=== PATIENT | male | born 1995 | race Caucasian/White ===

== ENCOUNTER 2016-07-19 07:22 | Emergency (ER) | payer OTHER ==
[2016-07-19 07:31] VITALS: BP 135/69
--- NOTE | 2016-07-19 08:42 | RAD ---
Indication: Left knee injury. 4 views of left knee demonstrates no fracture. No other bone or joint abnormality is identified. IMPRESSION: No fracture of the left knee is noted.
--- NOTE | 2016-07-19 08:47 | UC ---
Reginaldo Banda Salem, [facility] on 07/19/16 at 0746 . Knee Pain HPI - HPI Summary HPI Summary: HPI: Patient is a 21 y/o male who presents to the s/p a left knee injury since last night at 0000. He reports slipping on ice and hyper-extending his knee. He states that the back and side of his left knee is now in pain and he cannot extend his knee. 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 note: Left knee injury from slipping on ice 8 hours ago. 5/10 pain. Occasional EtOH. Nonsmoker. Cholecystectomy. Visit hx: noncontributory to current complaint. Nurses note: Left knee pain after a slip and fall last evening. - History of Current Complaint Stated Complaint: KNEE INJURY Hx Obtained From: Patient Onset/Duration: Gradual Onset, Lasting Hours Severity Initially: Moderate Severity Currently: Moderate Aggravating Factor(s): Movement Alleviating Factor(s): Nothing Associated Signs And Symptoms: Positive: Negative - Allergies/Home Medications Allergies/Adverse Reactions: Allergies Allergy/AdvReac Type Severity Reaction Status Date / Time Amoxicillin [From Augmentin] Allergy Unknown Unknown Verified 07/19/16 07:26 Reaction Details Clavulanic Acid Allergy Unknown Unknown Verified 07/19/16 07:26 [From Augmentin] Reaction Details PMH/Surg Hx/FS Hx/Imm Hx Endocrine History Of: Denies: Diabetes, Thyroid Disease, Hyperthyroidism, Hypothyroidism, Dyslipidemia Cardiovascular History Of: Denies: Cardiac Disorders, Hypertension, Pacemaker/ICD, Myocardial Infarction , Congestive Heart Failure, Atrial Fibrillation, Deep Vein Thrombosis, Bleeding Disorders Respiratory History Of: Denies: COPD, Asthma, Bronchitis, Pneumonia, Pulmonary Embolism GI/ History Of: Reports: Gastroesophageal Reflux - He states that he will "wake up in tears" at night sometimes. Milk helps., Gall Bladder Disease - He had his gangrenous gallbladder out when 16 years old. Denies: Ulcer, Gastrointestinal Bleed, Kidney Stones, Diverticulitis, Renal Disease, Urosepsis Neurological History Of: Denies: TIA, CVA, Dementia, Seizures, Migraine Psychological History Of: Reports: Anxiety, Depression, Bipolar Disorder - He states that he has these problems, but he has not seen anyone for care. Denies: Schizophrenia, Post Traumatic Stress Disorder Cancer History Of: Denies: Lung Cancer, Colorectal Cancer, Breast Cancer, Prostate Cancer, Cervical Cancer Other History Of: Negative For: HIV, Hepatitis B, Hepatitis C, Anticoagulant Therapy - Surgical History Surgical History: Yes Surgery Procedure, Year, and Place: cholecystectomy - Family History Known Family History: Positive: Cardiac Disease, Hypertension - Social History Alcohol Use: Occasionally Substance Use Type: Marijuana Smoking Status (MU): Never Smoked Tobacco Type: Smokeless Tobacco Have You Smoked in the Last Year: No Review of Systems Constitutional: Negative Musculoskeletal: Other: - Pain in back and side of left knee. All Other Systems Reviewed And Are Negative: Yes Physical Exam Triage Information Reviewed: Yes Appearance: Well-Appearing, No Pain Distress, Well-Nourished Vital Signs: Initial Vital Signs Temp 97.9 F 07/19/16 07:24 Pulse 80 07/19/16 07:24 Resp 16 07/19/16 07:24 BP 135/69 07/19/16 07:24 Pulse Ox 98 07/19/16 07:24 Vital Signs Reviewed: Yes Eyes: Positive: Conjunctiva Clear ENT: Positive: Hearing grossly normal, Pharynx normal, TMs normal. Negative: Muffled/hoarse voice Neck: Positive: Supple, No Lymphadenopathy, Other: - No spine tenderness. Respiratory: Positive: Chest non-tender, Lungs clear, Normal breath sounds, No respiratory distress Cardiovascular: Positive: RRR, No Murmur Abdomen Description: Positive: Nontender, No Organomegaly, Soft Bowel Sounds: Positive: Present Musculoskeletal: Positive: Other: - LEFT KNEE TENDER POSTERIORLY AND ALONG THE HAMSTRING TENDON. Neurological: Positive: Alert Psychological: Positive: Age Appropriate Behavior Diagnostics - Radiology KNEE XRAY Radiology Interpretation Completed By: ED Physician - No fracture., Radiologist - IMPRESSION: No fracture of the left knee is noted. Knee Pain Course/Dx - Course Course Of Treatment: Differential diagnosis: Soft tissue injury vs fracture. - Differential Dx/Diagnosis Differential Diagnosis/HQI/PQRI: Fracture (Closed), Sprain, Strain Provider Diagnoses: 1. Left knee sprain. 2. Note: Systolic blood pressure noted at 135 bpm. Pt does not have a hx of HTN. HTN possibly secondary to pain. Discussed with pt. He will recheck his blood pressure over the next four weeks. Discharge - Discharge Plan Condition: Stable Disposition: HOME Patient Education Materials: Knee Sprain (ED) Forms: *Work Release Referrals: Dale Mtz MD [Primary Care Provider] - Additional Instructions: WE DISCUSSED: YOU HAVE SPRAINED YOUR LEFT KNEE, MOSTLY IN THE AREA BEHIND THE KNEE. 1. REST KNEE FRO 2-4 DAYS. 2. IBUPROFEN OR ACETAMINOPHEN. 3. WARM, MOIST HEAT IN THE MORNING TO LOOSEN UP MUSCLES. 4. ICE AFTER STANDING OR USE; ELEVATE; USE SEBASTIEN WRAP. 5. RE CHECK AT ANY TIME FOR INCREASED PAIN OR DISABILITY. 6. WE WILL CALL YOU WITH THE OFFICIAL X RAY READING IF ANY PROBLEMS ARE SEEN AT THAT TIME. 7. RESTRICT USE UNTIL YOU ARE PAIN FREE FOR A DAY. "IF IT HURTS, DON'T DO IT. " 8. IF YOU HAVE CONTINUED PAIN IN 4 WEEKS, RE CHECK WITH AN ORTHOPEDIST. The documentation as recorded by the Reginaldo gallgeos Salem accurately reflects the service I personally performed and the decisions made by me, Bay Arroyo MD.
== END 2016-07-19 08:25 | disposition home or self-care (01) ==
LOC: UCEAST 07:22
DX: S83.92XA Sprain of unspecified site of left knee, initial encounter (principal); W00.0XXA Fall on same level due to ice and snow, initial encounter; Y92.9 Unspecified place or not applicable; Z88.0 Allergy status to penicillin
CPT/HCPCS: 99212; G0463

== ENCOUNTER 2017-06-23 15:52 | Inpatient (IN) | payer MEDICAID ==
[2017-06-23 16:41] LABS: Urine Appearance Clear; Urine Blood Negative (Negative); Urine Color Yellow; Urine Ketones Negative (Negative); Urine Protein Negative (Negative); Urine Specific Gravity 1.029 (1.010-1.030); Urine Urobilinogen Negative (Negative)
[2017-06-23 16:51] LABS: ABS Basophils 0.1 10^3/ul (0-0.2); ABS Eosinophils 0.1 10^3/ul (0-0.6); ABS Lymphocytes 2.3 10^3/ul (1.0-4.8); ABS Monocytes 0.8 10^3/ul (0-0.8); ABS Neutrophils 6.2 10^3/ul (1.5-7.7); ABS Nucleated RBC 0 10^3/ul; Eosinophil % 0.9 % (0-6); Hematocrit 45 % (42-52); Hemoglobin 15.9 g/dl (14.0-18.0); Lymphocyte % 24.5 % (25-47); Mean Corpuscular HGB Conc 35 g/dl (31-36); Mean Corpuscular Hemoglobin 31 pg (27-31); Mean Corpuscular Volume 89 fL (80-94); Mean Platelet Volume 9 um3 (7.4-10.4); Nucleated Red Blood Cells % 0; Platelet Count 277 10^3/ul (150-450); Red Blood Count 5.09 10^6/ul (4.0-5.4); Red Cell Distribution Width 13 % (10.5-15); White Blood Count 9.6 10^3/ul (3.5-10.8)
[2017-06-23] MEDS ORDERED: cefTRIAXone VIAL(*) 1,000 MG VIAL IM ONE (17:06)
[2017-06-23] MEDS ORDERED: Azithromycin TAB* 250 MG PO ONE (17:06)
[2017-06-23] MEDS ORDERED: ALPRAZolam TAB* 0.5 MG PO ONE (17:08)
[2017-06-23] MEDS ORDERED: Lidocaine 1%* 5 ML VIAL ONE (17:09)
[2017-06-23] MEDS ORDERED: Lidocaine 1% INJ* 10 MG/ML 30 ML SDV INJ ONE (17:10)
[2017-06-24] MEDS ORDERED: Al Hydrox/Mg Hydrox/Simet LIQ* 30 ML UDC PO PRN (01:14)
[2017-06-24] MEDS: Vitamin THERAPEUTIC TAB PO SCH (10:00)
[2017-06-24] MEDS ORDERED: Nicotine Inhaler* 10 MG AMP INH PRN (11:00)
[2017-06-24] MEDS ORDERED: Nicotine GUM* 2 MG PO PRN (11:00)
[2017-06-24] MEDS ORDERED: Mouth Piece, Nicotine* 1 EACH CARTRIDGE INH PRN (11:00)
[2017-06-24] MEDS ORDERED: Omeprazole CAP* 20 MG ONE (11:12)
[2017-06-24] MEDS: Omeprazole CAP* 20 MG PO SCH (11:17)
[2017-06-24] MEDS ORDERED: hydrOXYzine HCL TAB* 50 MG PO PRN (11:48)
[2017-06-24] MEDS: OXcarbazepine TAB(*) 300 MG PO SCH ×2 (13:15→22:01)
[2017-06-24] MEDS: FLUoxetine CAP* 20 MG PO SCH (13:15)
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
[2017-06-24] MEDS: Nicotine Patch Removal NOTE PATCH OFF SCH (22:05)
[2017-06-25] MEDS: OXcarbazepine TAB(*) 300 MG PO SCH ×2 (07:36→20:44)
[2017-06-25] MEDS: Omeprazole CAP* 20 MG PO SCH (07:36)
[2017-06-25] MEDS: Vitamin THERAPEUTIC TAB PO SCH (07:37)
[2017-06-25] MEDS: FLUoxetine CAP* 20 MG PO SCH (07:37)
[2017-06-25] MEDS: Nicotine PATCH 21 MG/24 HR* PATCH TRANSDERM SCH (07:39)
--- NOTE | 2017-06-25 11:22 | PN ---
<Trena Chang - Last Filed: 06/25/17 11:53> Subjective - Subjective Service Type: 14776 Hosp care 25 min moderate complexity Subjective: Frankie is tearful as he talks about the father he would like to be to his children. Reports this is the first time he has asked for help in dealing with his anger and sadness. Has some insight regarding his need to learn coping skills. He reports urges to self harm, wanting to bang his head against the wall until he doesn't think the thoughts he has. Option of inpatient treatment for substance use presented. Discussed going to AA meetings on unit and he is considering this. Objective - Appearance Appearance: Obese Dysmorphic Features: No Hygiene: Normal Grooming: Well Kept - Behavior Psychomotor Activities: Normal Exhibits Abnormal Movement: No - Attitude and Relatedness Attitude and Relatedness: Well Related Eye Contact: Good - Speech Quality: Unpressured Latencies: Normal Quantity: Appropriate - Mood Patient's Decription of Mood: and frustrated. - Affect Observed Affect: Tearful Affect Consistent with: Dysphoria - Thought Process Patient's Thought Process: Coherent, Goal Directed Thought Content: No Passive Wish, No Suicidal Planning, No Homicidal Ideation, No Paranoid Ideation - Sensorium Experiencing Hallucinations: No, Sensorium is Clear Type of Hallucinations: Visual: No, Auditory: No, Command: No - Level of Consciousness Orientation: Yes Intact, Yes Orientated to Time, Yes Orientated to Place, Yes Orientated to Person - Impulse Control Impulse Control: Tenuous - Insight and Judgement Insight and Judgement: Poor - Group Participation Particating in Group Activities: Yes - Medication Management Medication Management Adherence: Yes Assessment - Assessment Merits Inpatient Hospitalization: For Immediate Safety, For Stabilization, For Discharge Planning Clinical Impression: First psychiatric inpatient admission for this 22 year old male who presented to the ED with complaints of suicidal ideation and engaging in excessive substance use. History of chaotic upbringing and questionable oppositional defiant disorder. Homicidal threats made during his evaluation process, staff performed duty to warn, police are to be notified when the patient has been discharged. Requires continued hospitalization for immediate safety, stabilization and medication. Plan - Plan Treatment Plan: Name: FRANKIE VILLEGAS Birthdate: 1995 [id number] Continued Medication Management: Start Medication Medications: Current Medications Acetaminophen (Tylenol Tab*) 650 mg PO Q4H PRN PRN Reason: PAIN or TEMP > 101 F Al Hydrox/Mg Hydrox/Simethicone (Maalox Plus*) 30 ml PO Q4H PRN PRN Reason: INDIGESTION Device (Nicotine Mouth Piece*) 1 each INH .USE WITH NICOTROL PRN PRN Reason: CRAVING Fluoxetine HCl (Prozac Cap*) 20 mg PO DAILY [facility] Last Admin: 06/25/17 07:37 Dose: 20 mg Hydroxyzine HCl (Atarax Tab*) 50 mg PO Q4H PRN PRN Reason: ANXIETY Multivitamins (Theragran Tab*) 1 tab PO DAILY [facility] Last Admin: 06/25/17 07:37 Dose: 1 tab Nicotine (Nicotine Inhaler*) 10 mg INH Q2H PRN PRN Reason: CRAVING Nicotine (Nicotine Patch 21 Mg/24 Hr*) 1 patch TRANSDERM DAILY@0800 [facility] Last Admin: 06/25/17 07:39 Dose: Not Given Nicotine Polacrilex (Nicotine Gum*) 2 mg PO Q2H PRN PRN Reason: CRAVING Omeprazole (Prilosec Cap*) 40 mg PO DAILY [facility] Last Admin: 06/25/17 07:36 Dose: 40 mg Oxcarbazepine (Trileptal Tab(*)) 600 mg PO BID [facility] Last Admin: 06/25/17 07:36 Dose: 600 mg Pharmacy Profile Note (Nicotine Patch Removal Note*) 1 note PATCH OFF 2100 [facility] Last Admin: 06/24/17 22:05 Dose: Not Given <Roro Tracey - Last Filed: 06/25/17 14:48> Subjective - Subjective Service Type: 64412 Hosp care 25 min moderate complexity Subjective: above note reviewed and discussed with student. nessa Plan - Plan Treatment Plan: Name: FRANKIE VILLEGAS Birthdate: 1995 [id number] continue acute intensive psychiatric treatment. continue current medications. decrease to q30min observation and allow staff pass. Medications: Current Medications Acetaminophen (Tylenol Tab*) 650 mg PO Q4H PRN PRN Reason: PAIN or TEMP > 101 F Al Hydrox/Mg Hydrox/Simethicone (Maalox Plus*) 30 ml PO Q4H PRN PRN Reason: INDIGESTION Device (Nicotine Mouth Piece*) 1 each INH .USE WITH NICOTROL PRN PRN Reason: CRAVING Fluoxetine HCl (Prozac Cap*) 20 mg PO DAILY [facility] Last Admin: 06/25/17 07:37 Dose: 20 mg Hydroxyzine HCl (Atarax Tab*) 50 mg PO Q4H PRN PRN Reason: ANXIETY Multivitamins (Theragran Tab*) 1 tab PO DAILY [facility] Last Admin: 06/25/17 07:37 Dose: 1 tab Nicotine (Nicotine Inhaler*) 10 mg INH Q2H PRN PRN Reason: CRAVING Nicotine (Nicotine Patch 21 Mg/24 Hr*) 1 patch TRANSDERM DAILY@0800 [facility] Last Admin: 06/25/17 07:39 Dose: Not Given Nicotine Polacrilex (Nicotine Gum*) 2 mg PO Q2H PRN PRN Reason: CRAVING Omeprazole (Prilosec Cap*) 40 mg PO DAILY [facility] Last Admin: 06/25/17 07:36 Dose: 40 mg Oxcarbazepine (Trileptal Tab(*)) 600 mg PO BID [facility] Last Admin: 06/25/17 07:36 Dose: 600 mg Pharmacy Profile Note (Nicotine Patch Removal Note*) 1 note PATCH OFF 2100 [facility] Last Admin: 06/24/17 22:05 Dose: Not Given - Discharge Plan Discharge Plan: Drug/Alcohol Rehab Outpatient Program: [facility]
--- NOTE | 2017-06-25 14:04 | PN ---
MHU: Group Therapy Note - Service Type Service Type: [id number] Group Psychotherapy - Cognitive Behavioral Group Therapy ( CBT):Patient was attentive and participatory in CBT programming this morning, and remained in good behavioral control. Patient expressed positive insights regarding relevant treatment interventions and goals.
--- NOTE | 2017-06-25 16:23 | PN ---
MHU: Group Therapy Note - Service Type Service Type: [id number] Group Psychotherapy - Medication Education Group: Patient was initially interactive and quickly became irritable. He left within minutes of beginning of group.
[2017-06-25] MEDS: Nicotine Patch Removal NOTE PATCH OFF SCH (20:44)
[2017-06-26] MEDS: OXcarbazepine TAB(*) 300 MG PO SCH ×2 (07:39→21:14)
[2017-06-26] MEDS: Vitamin THERAPEUTIC TAB PO SCH (07:40)
[2017-06-26] MEDS: FLUoxetine CAP* 20 MG PO SCH (07:40)
[2017-06-26] MEDS: Nicotine PATCH 21 MG/24 HR* PATCH TRANSDERM SCH (07:41)
[2017-06-26] MEDS: Omeprazole CAP* 20 MG PO SCH (07:41)
--- NOTE | 2017-06-26 15:05 | PN ---
Subjective - Subjective Service Type: 84160 Hosp care 15 min low complexity Subjective: Patient has been attending unit programming, interactive with staff and peers. He is irritable at times, expresses urges to self harm via head banging. He has remained safe on the unit. Patient endorses passive wish, hopelessness and worthlessness. He is receptive to feedback and psychoeducation about mental health and substance use disorders. Objective - Appearance Appearance: Obese Dysmorphic Features: Yes Hygiene: Normal Grooming: Fairly Well Kept - Behavior Psychomotor Activities: Normal Exhibits Abnormal Movement: No - Attitude and Relatedness Attitude and Relatedness: Irritable Eye Contact: Fair - Speech Quality: Unpressured Latencies: Normal Quantity: Appropriate - Mood Patient's Decription of Mood: "Irritable" - Affect Observed Affect: Expansive Affect Consistent with: Dysphoria - Thought Process Patient's Thought Process: Circumstantial Thought Content: Yes Passive Wish, No Suicidal Planning, No Homicidal Ideation, No Paranoid Ideation Assessment - Assessment Merits Inpatient Hospitalization: For Immediate Safety, For Stabilization, To Initiate Treatment, Consolidate Improvements Inpatient DSM-V Dx: F39 Clinical Impression: 22yo white male who presented to ED with reports of increased depressed mood, agitation and substance use. Patient responding well to therapeutic milieu and support. He is agreeable to referrals for substance use treatment. Plan - Plan Treatment Plan: Name: FRANKIE VILLEGAS Birthdate: 1995 [id number] continue acute intensive psychiatric treatment. continue current medications. increase to q15min observation and hold staff pass due to urges to self-injure. Continued Medication Management: Start Medication Medications: Current Medications Acetaminophen (Tylenol Tab*) 650 mg PO Q4H PRN PRN Reason: PAIN or TEMP > 101 F Al Hydrox/Mg Hydrox/Simethicone (Maalox Plus*) 30 ml PO Q4H PRN PRN Reason: INDIGESTION Device (Nicotine Mouth Piece*) 1 each INH .USE WITH NICOTROL PRN PRN Reason: CRAVING Fluoxetine HCl (Prozac Cap*) 20 mg PO DAILY [facility] Last Admin: 06/26/17 07:40 Dose: 20 mg Hydroxyzine HCl (Atarax Tab*) 50 mg PO Q4H PRN PRN Reason: ANXIETY Multivitamins (Theragran Tab*) 1 tab PO DAILY [facility] Last Admin: 06/26/17 07:40 Dose: 1 tab Nicotine (Nicotine Inhaler*) 10 mg INH Q2H PRN PRN Reason: CRAVING Nicotine (Nicotine Patch 21 Mg/24 Hr*) 1 patch TRANSDERM DAILY@0800 [facility] Last Admin: 06/26/17 07:41 Dose: Not Given Nicotine Polacrilex (Nicotine Gum*) 2 mg PO Q2H PRN PRN Reason: CRAVING Omeprazole (Prilosec Cap*) 40 mg PO DAILY [facility] Last Admin: 06/26/17 07:41 Dose: 40 mg Oxcarbazepine (Trileptal Tab(*)) 600 mg PO BID [facility] Last Admin: 06/26/17 07:39 Dose: 600 mg Pharmacy Profile Note (Nicotine Patch Removal Note*) 1 note PATCH OFF 2100 [facility] Last Admin: 06/25/17 20:44 Dose: Not Given - Discharge Plan Discharge Plan: Drug/Alcohol Rehab
[2017-06-26] MEDS: Acetaminophen TAB* 325 MG PO PRN (16:08)
[2017-06-26] MEDS: Nicotine Patch Removal NOTE PATCH OFF SCH (21:19)
[2017-06-27] MEDS: Omeprazole CAP* 20 MG PO SCH (08:16)
[2017-06-27] MEDS: OXcarbazepine TAB(*) 300 MG PO SCH ×2 (08:16→20:48)
[2017-06-27] MEDS: Vitamin THERAPEUTIC TAB PO SCH (08:17)
[2017-06-27] MEDS: FLUoxetine CAP* 20 MG PO SCH (08:17)
[2017-06-27] MEDS: Nicotine PATCH 21 MG/24 HR* PATCH TRANSDERM SCH (09:39)
--- NOTE | 2017-06-27 14:24 | PN ---
Subjective - Subjective Date of Service: 06/27/17 Service Type: 39932 Hosp care 15 min low complexity Subjective: Frankie is not feeling well today. He has been thinking about hurting people and feels enraged inside. Called his ex and couldn't get hold of her. Still wants to kill his ex's current boyfriend. Taking meds and attending groups. Objective - Appearance Appearance: Obese Dysmorphic Features: No Hygiene: Normal Grooming: Fairly Well Kept - Behavior Psychomotor Activities: Normal Exhibits Abnormal Movement: No - Attitude and Relatedness Attitude and Relatedness: Irritable Eye Contact: Poor - Speech Quality: Unpressured Latencies: Normal Quantity: Appropriate - Mood Patient's Decription of Mood: "Angry" - Affect Observed Affect: Tense Affect Consistent with: Dysphoria - Thought Process Patient's Thought Process: Coherent, Goal Directed Thought Content: Yes Passive Wish, Yes Homicidal Ideation, No Suicidal Planning, No Paranoid Ideation - Sensorium Experiencing Hallucinations: No, Sensorium is Clear Type of Hallucinations: Visual: No, Auditory: No, Command: No - Level of Consciousness Level of Consciousness: Alert Orientation: Yes Intact, Yes Orientated to Time, Yes Orientated to Place, Yes Orientated to Person - Impulse Control Impulse Control: Tenuous - Insight and Judgement Insight and Judgement: Impaired - Group Participation Particating in Group Activities: Yes - Medication Management Medication Management Adherence: Yes Assessment - Assessment Merits Inpatient Hospitalization: For Stabilization, Pending Safe DC Plan Inpatient DSM-V Dx: F39 Clinical Impression: Still a risk for harm to self and others. Need inpatient care and notification to the potential victim. Plan - Plan Treatment Plan: Name: FRANKIE VILLEGAS Birthdate: 1995 [id number] Continued Medication Management: Continue Outpt Medication Medications: Current Medications Acetaminophen (Tylenol Tab*) 650 mg PO Q4H PRN PRN Reason: PAIN or TEMP > 101 F Last Admin: 06/26/17 16:08 Dose: 650 mg Al Hydrox/Mg Hydrox/Simethicone (Maalox Plus*) 30 ml PO Q4H PRN PRN Reason: INDIGESTION Device (Nicotine Mouth Piece*) 1 each INH .USE WITH NICOTROL PRN PRN Reason: CRAVING Fluoxetine HCl (Prozac Cap*) 20 mg PO DAILY [facility] Last Admin: 06/27/17 08:17 Dose: 20 mg Hydroxyzine HCl (Atarax Tab*) 50 mg PO Q4H PRN PRN Reason: ANXIETY Multivitamins (Theragran Tab*) 1 tab PO DAILY [facility] Last Admin: 06/27/17 08:17 Dose: 1 tab Nicotine (Nicotine Inhaler*) 10 mg INH Q2H PRN PRN Reason: CRAVING Nicotine (Nicotine Patch 21 Mg/24 Hr*) 1 patch TRANSDERM DAILY@0800 [facility] Last Admin: 06/27/17 09:39 Dose: Not Given Nicotine Polacrilex (Nicotine Gum*) 2 mg PO Q2H PRN PRN Reason: CRAVING Omeprazole (Prilosec Cap*) 40 mg PO DAILY [facility] Last Admin: 06/27/17 08:16 Dose: 40 mg Oxcarbazepine (Trileptal Tab(*)) 600 mg PO BID [facility] Last Admin: 06/27/17 08:16 Dose: 600 mg Pharmacy Profile Note (Nicotine Patch Removal Note*) 1 note PATCH OFF 2100 [facility] Last Admin: 06/26/17 21:19 Dose: Not Given - Discharge Plan Discharge Plan: Outpatient Follow Up Outpatient Program: [facility]
[2017-06-27] MEDS: Nicotine Patch Removal NOTE PATCH OFF SCH (20:49)
[2017-06-28] MEDS: Omeprazole CAP* 20 MG PO SCH (08:25)
[2017-06-28] MEDS: FLUoxetine CAP* 20 MG PO SCH (08:25)
[2017-06-28] MEDS: Vitamin THERAPEUTIC TAB PO SCH (08:26)
[2017-06-28] MEDS: OXcarbazepine TAB(*) 300 MG PO SCH ×2 (08:26→20:17)
[2017-06-28] MEDS: Nicotine PATCH 21 MG/24 HR* PATCH TRANSDERM SCH (08:30)
[2017-06-28] MEDS: Nicotine Patch Removal NOTE PATCH OFF SCH (20:19)
[2017-06-29] MEDS: Acetaminophen TAB* 325 MG PO PRN ×2 (00:38→21:03)
[2017-06-29] MEDS: Omeprazole CAP* 20 MG PO SCH (07:50)
[2017-06-29] MEDS: OXcarbazepine TAB(*) 300 MG PO SCH ×2 (07:50→21:03)
[2017-06-29] MEDS: Vitamin THERAPEUTIC TAB PO SCH (07:50)
[2017-06-29] MEDS: FLUoxetine CAP* 20 MG PO SCH (07:50)
[2017-06-29] MEDS: Nicotine PATCH 21 MG/24 HR* PATCH TRANSDERM SCH (08:15)
[2017-06-29] MEDS ORDERED: Hemorrhoidal OINT PR PRN (15:21)
[2017-06-29] MEDS ORDERED: Loperamide CAP* 2 MG PO PRN (15:21)
--- NOTE | 2017-06-29 15:26 | PN ---
Subjective - Subjective Service Type: 00566 Hosp care 15 min low complexity Subjective: Patient is easily agitated and annoyed by peers. He states he is "miserable" and hoping to go to inpatient treatment soon. He reports frustration at not being allowed to use comfort room or staff pass. He is receptive to provider suggestions regarding distress tolerance and anger management. He states he slept most of the weekend and used sleep to avoid emotions and interactions. He states he had severe urges to want to get drunk and high this past weekend. He states he tries to distract himself with word searches. Reports loose stools, up to 6x day. He denies abd cramping or constipation. He reports bright blood on toilet paper after BMs, likely due to hemorrhoids. Objective - Appearance Appearance: Obese Dysmorphic Features: Yes Hygiene: Normal Grooming: Fairly Well Kept - Behavior Psychomotor Activities: Normal Exhibits Abnormal Movement: No - Attitude and Relatedness Attitude and Relatedness: Irritable Eye Contact: Fair - Speech Quality: Unpressured Latencies: Normal Quantity: Appropriate - Mood Patient's Decription of Mood: "miserable" - Affect Observed Affect: Depressed Affect Consistent with: Dysphoria - Thought Process Patient's Thought Process: Circumstantial Thought Content: Yes Passive Wish, Yes Homicidal Ideation, No Suicidal Planning, No Paranoid Ideation - Sensorium Experiencing Hallucinations: No, Sensorium is Clear Type of Hallucinations: Visual: No, Auditory: No, Command: No - Level of Consciousness Level of Consciousness: Alert Orientation: Yes Intact, Yes Orientated to Time, Yes Orientated to Place, Yes Orientated to Person - Impulse Control Impulse Control: Poor - Insight and Judgement Insight and Judgement: Poor - Group Participation Particating in Group Activities: No - Medication Management Medication Management Adherence: Yes Assessment - Assessment Merits Inpatient Hospitalization: For Immediate Safety, For Stabilization, To Initiate Treatment, Consolidate Improvements Inpatient DSM-V Dx: F39 Clinical Impression: 22yo white male who presented to ED with reports of increased depressed mood, agitation and substance use. Patient responding well to therapeutic milieu and support. He is agreeable to referrals for substance use treatment. Plan - Plan Treatment Plan: Name: FRANKIE VILLEGAS Birthdate: 1995 [id number] continue acute intensive psychiatric treatment. increase fluoxetine in am. add immodium and hemorrhoid cream for GI distress. decrease to q30min observation and allow staff pass. Continued Medication Management: Start Medication Medications: Current Medications Acetaminophen (Tylenol Tab*) 650 mg PO Q4H PRN PRN Reason: PAIN or TEMP > 101 F Last Admin: 06/29/17 00:38 Dose: 650 mg Al Hydrox/Mg Hydrox/Simethicone (Maalox Plus*) 30 ml PO Q4H PRN PRN Reason: INDIGESTION Device (Nicotine Mouth Piece*) 1 each INH .USE WITH NICOTROL PRN PRN Reason: CRAVING Fluoxetine HCl (Prozac Cap*) 20 mg PO DAILY [facility] Last Admin: 06/29/17 07:50 Dose: 20 mg Hydroxyzine HCl (Atarax Tab*) 50 mg PO Q4H PRN PRN Reason: ANXIETY Multivitamins (Theragran Tab*) 1 tab PO DAILY [facility] Last Admin: 06/29/17 07:50 Dose: 1 tab Nicotine (Nicotine Inhaler*) 10 mg INH Q2H PRN PRN Reason: CRAVING Nicotine (Nicotine Patch 21 Mg/24 Hr*) 1 patch TRANSDERM DAILY@0800 [facility] Last Admin: 06/29/17 08:15 Dose: Not Given Nicotine Polacrilex (Nicotine Gum*) 2 mg PO Q2H PRN PRN Reason: CRAVING Omeprazole (Prilosec Cap*) 40 mg PO 0730 [facility] Last Admin: 06/29/17 07:50 Dose: 40 mg Oxcarbazepine (Trileptal Tab(*)) 600 mg PO BID [facility] Last Admin: 06/29/17 07:50 Dose: 600 mg Pharmacy Profile Note (Nicotine Patch Removal Note*) 1 note PATCH OFF 2100 [facility] Last Admin: 06/28/17 20:19 Dose: Not Given - Discharge Plan Discharge Plan: Drug/Alcohol Rehab
[2017-06-30] MEDS: Vitamin THERAPEUTIC TAB PO SCH (09:02)
[2017-06-30] MEDS: FLUoxetine CAP* 20 MG PO SCH (09:03)
[2017-06-30] MEDS: Omeprazole CAP* 20 MG PO SCH (09:03)
[2017-06-30] MEDS: OXcarbazepine TAB(*) 300 MG PO SCH ×2 (09:04→20:44)
[2017-06-30] MEDS: Nicotine PATCH 21 MG/24 HR* PATCH TRANSDERM SCH (09:07)
[2017-06-30] MEDS: Nicotine Patch Removal NOTE PATCH OFF SCH ×2 (09:30→20:45)
[2017-06-30] MEDS: Gabapentin CAP(*) 100 MG PO PRN (13:53)
[2017-06-30] MEDS: Naltrexone TAB* 50 MG TAB PO SCH (13:53)
[2017-06-30] MEDS: Acetaminophen TAB* 325 MG PO PRN ×2 (13:54→23:17)
--- NOTE | 2017-06-30 14:20 | PN ---
Subjective - Subjective Service Type: 62606 Hosp care 25 min moderate complexity Subjective: Patient reports little effect from trileptal and that he is "angry a lot." He states he is frustrated with waiting for inpatient referrals. He reports thoughts of wanting to "go out and get drunk." He endorses restless sleep and vivid, violent nightmares. Patient reports talking with staff and utilizing comfort room was helpful when upset this morning. He is receptive to suggestion of utilizing prn medications as well. We discuss use of medications for alcohol use d/o and he is agreeable to naltrexone and gabapentin. patient is notified of negative STI results. Objective - Appearance Appearance: Obese Dysmorphic Features: No Hygiene: Normal Grooming: Fairly Well Kept - Behavior Psychomotor Activities: Normal Exhibits Abnormal Movement: No - Attitude and Relatedness Attitude and Relatedness: Cooperative Eye Contact: Good - Speech Quality: Unpressured Latencies: Normal Quantity: Appropriate - Mood Patient's Decription of Mood: "Upset" - Affect Observed Affect: Expansive Affect Consistent with: Dysphoria - Thought Process Patient's Thought Process: Circumstantial Thought Content: No Passive Wish, No Suicidal Planning, No Homicidal Ideation, No Paranoid Ideation - Sensorium Experiencing Hallucinations: No, Sensorium is Clear Type of Hallucinations: Visual: No, Auditory: No, Command: No - Level of Consciousness Level of Consciousness: Alert Orientation: Yes Intact, Yes Orientated to Time, Yes Orientated to Place, Yes Orientated to Person - Impulse Control Impulse Control: Poor - Insight and Judgement Insight and Judgement: Poor - Group Participation Particating in Group Activities: Yes - Medication Management Medication Management Adherence: Yes Assessment - Assessment Merits Inpatient Hospitalization: For Immediate Safety, For Stabilization, Consolidate Improvements Inpatient DSM-V Dx: F39 Clinical Impression: 22yo white male who presented to ED with reports of increased depressed mood, agitation and substance use. Patient responding well to therapeutic milieu and support. He is agreeable to referrals for substance use treatment. Plan - Plan Treatment Plan: Name: FRANKIE VILLEGAS Birthdate: 1995 [id number] continue acute intensive psychiatric treatment. add naltrexone and gabapentin for alcohol use d/o. continue q30min observation and allow staff pass. awaiting MMPI completion. Continued Medication Management: Start Medication Medications: Current Medications Acetaminophen (Tylenol Tab*) 650 mg PO Q4H PRN PRN Reason: PAIN or TEMP > 101 F Last Admin: 06/30/17 13:54 Dose: 650 mg Al Hydrox/Mg Hydrox/Simethicone (Maalox Plus*) 30 ml PO Q4H PRN PRN Reason: INDIGESTION Device (Nicotine Mouth Piece*) 1 each INH .USE WITH NICOTROL PRN PRN Reason: CRAVING Fluoxetine HCl (Prozac Cap*) 40 mg PO DAILY [facility] Last Admin: 06/30/17 09:03 Dose: 40 mg Gabapentin (Neurontin Cap(*)) 300 mg PO BEDTIME [facility] Gabapentin (Neurontin Cap(*)) 100 mg PO BID PRN PRN Reason: AGITATION/ANXIETY Last Admin: 06/30/17 13:53 Dose: 100 mg Loperamide HCl (Imodium Cap*) 2 mg PO .SEE DIRECTIONS PRN PRN Reason: DIARRHEA Last Admin: 06/29/17 15:52 Dose: 2 mg Multivitamins (Theragran Tab*) 1 tab PO DAILY [facility] Last Admin: 06/30/17 09:02 Dose: 1 tab Naltrexone HCl (Naltrexone Tab*) 50 mg PO DAILY [facility] PRN Reason: Protocol Last Admin: 06/30/17 13:53 Dose: 50 mg Nicotine (Nicotine Inhaler*) 10 mg INH Q2H PRN PRN Reason: CRAVING Nicotine (Nicotine Patch 21 Mg/24 Hr*) 1 patch TRANSDERM DAILY@0800 [facility] Last Admin: 06/30/17 09:07 Dose: Not Given Nicotine Polacrilex (Nicotine Gum*) 2 mg PO Q2H PRN PRN Reason: CRAVING Omeprazole (Prilosec Cap*) 40 mg PO 0730 [facility] Last Admin: 06/30/17 09:03 Dose: 40 mg Oxcarbazepine (Trileptal Tab(*)) 600 mg PO BID [facility] Last Admin: 06/30/17 09:04 Dose: 600 mg Pharmacy Profile Note (Nicotine Patch Removal Note*) 1 note PATCH OFF 2100 [facility] Last Admin: 06/30/17 09:30 Dose: Not Given Phenyleph/Shark Oil/Min Oil/Petrol (Preparation H*) 1 applic NV QID PRN PRN Reason: PAIN - Discharge Plan Discharge Plan: Drug/Alcohol Rehab
--- NOTE | 2017-06-30 15:14 | ED ---
Oz Banda Jennifer, scribed for Lalit Fisher MD on 06/23/17 at 1710 . Psychiatric Complaint - HPI Summary HPI Summary: The patient is a 22 year old male who complains of suicidal ideation and possible thoughts of harming others recently. The patient reports that he cant stand to be around people, especially his family and children. He explains that he has been going through a custody smith with his and that his took everything from me. The patient reports that he is so depressed that he is either sleeping or eating all the time. - History Of Current Complaint Chief Complaint: EDMentalHealth Time Seen by Provider: 06/23/17 16:57 Hx Obtained From: Patient Onset/Duration: Gradual Onset, Still Present, Worse Since Severity Initially: Moderate Severity Currently: Moderate Character: Depressed, Anxious Aggravating Factor(s): Recent Stress - Custody smith with Alleviating Factor(s): Nothing Associated Signs And Symptoms: Positive: Appetite Change - Eating all the time Has Suicidal: Reports: Thoughts. Denies: With A Plan Has Homicidal: Reports: Thoughts. Denies: With A Plan - Allergies/Home Medications Allergies/Adverse Reactions: Allergies Allergy/AdvReac Type Severity Reaction Status Date / Time MS Amoxicillin Allergy Unknown Unknown Verified 07/19/16 07:26 [From Augmentin] Reaction Details MS Clavulanic Acid Allergy Unknown Unknown Verified 07/19/16 07:26 [From Augmentin] Reaction Details PMH/Surg Hx/FS Hx/Imm Hx Endocrine/Hematology History: Denies: Hx Anticoagulant Therapy, Hx Diabetes, Hx Thyroid Disease Cardiovascular History: Denies: Hx Congestive Heart Failure, Hx Deep Vein Thrombosis, Hx Hypertension , Hx Myocardial Infarction, Hx Pacemaker/ICD Respiratory History: Denies: Hx Asthma, Hx Chronic Obstructive Pulmonary Disease (COPD), Hx Lung Cancer, Hx Pneumonia, Hx Pulmonary Embolism GI History: Reports: Hx Gall Bladder Disease - He had his gangrenous gallbladder out when 16 years old. Denies: Hx Gastrointestinal Bleed, Hx Ulcer, Hx Urosepsis History: Denies: Hx Kidney Stones, Hx Renal Disease Neurological History: Denies: Hx Dementia, Hx Migraine, Hx Seizures, Hx Transient Ischemic Attacks (TIA) Psychiatric History: Reports: Hx Anxiety, Hx Depression, Hx Bipolar Disorder - He states that he has these problems, but he has not seen anyone for care., Hx of Violent Episodes Against Others, Hx Substance Abuse - marijuana use Denies: Hx Schizophrenia - Surgical History Surgery Procedure, Year, and Place: cholecystectomy Infectious Disease History: No Infectious Disease History: Denies: Hx Clostridium Difficile, Hx Hepatitis, Hx Human Immunodeficiency Virus (HIV), Hx of Known/Suspected MRSA, Hx Shingles, Hx Tuberculosis, Hx Known/ Suspected VRE, Hx Known/Suspected VRSA, History Other Infectious Disease, Traveled Outside the [place] in Last 30 Days - Family History Known Family History: Positive: Cardiac Disease, Hypertension - Social History 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 Alcohol Use: Occasionally Substance Use Type: Reports: Marijuana Smoking Status (MU): Never Smoked Tobacco Type: Smokeless Tobacco Have You Smoked in the Last Year: No Review of Systems Negative: Fever, Chills Negative: Erythema Negative: Sore Throat Negative: Chest Pain Negative: Shortness Of Breath, Cough Negative: Abdominal Pain, Vomiting, Nausea Negative: dysuria, hematuria Negative: Myalgia, Edema Negative: Rash Neurological: Negative - Dizziness Positive: Anxious, Depressed All Other Systems Reviewed And Are Negative: Yes Physical Exam - Summary Physical Exam Summary: Constitutional: Well-developed, Well-nourished, Alert. (-) Distressed Skin: Warm, Dry HENT: Normocephalic; Atraumatic Eyes: Conjunctiva normal Neck: Musculoskeletal ROM normal neck. (-) JVD, (-) Stridor, (-) Tracheal deviation Cardio: Rhythm regular, rate normal, Heart sounds normal; Intact distal pulses; The pedal pulses are 2+ and symmetric. Radial pulses are 2+ and symmetric. (-) Murmur Pulmonary/Chest wall: Effort normal. (-) Respiratory distress, (-) Wheezes, (-) Rales Abd: Soft, (-) Tenderness, (-) Distension, (-) Guarding, (-) Rebound Musculoskeletal: (-) Edema Genitourinary: Possibility of urethritis and high risk sexual behavior. Lymph: (-) Cervical adenopathy Neuro: Alert, Oriented x3 Psych: High risk sexual behavior Triage Information Reviewed: Yes Vital Signs On Initial Exam: Initial Vitals Temp Pulse Resp BP Pulse Ox 97.6 F 88 18 155/92 98 06/23/17 15:58 06/23/17 15:58 06/23/17 15:58 06/23/17 15:58 06/23/17 15:58 Vital Signs Reviewed: Yes Diagnostics - Vital Signs Vital Signs Temp Pulse Resp BP Pulse Ox 06/23/17 15:58 97.6 F 88 18 155/92 98 - Laboratory Lab Results: Lab Results 06/23/17 06/23/17 06/23/17 Range/Units 16:25 16:25 16:35 WBC (3.5-10.8) 10^3/ul RBC (4.0-5.4) 10^6/ul Hgb (14.0-18.0) g/dl Hct (42-52) % MCV (80-94) fL MCH (27-31) pg MCHC (31-36) g/dl RDW (10.5-15) % Plt Count (150-450) 10^3/ul MPV (7.4-10.4) um3 Neut % (Auto) (38-83) % Lymph % (Auto) (25-47) % [place] % (Auto) (1-9) % Eos % (Auto) (0-6) % Baso % (Auto) (0-2) % Absolute Neuts (auto) (1.5-7.7) 10^3/ul Absolute Lymphs (auto) (1.0-4.8) 10^3/ul Absolute Monos (auto) (0-0.8) 10^3/ul Absolute Eos (auto) (0-0.6) 10^3/ul Absolute Basos (auto) (0-0.2) 10^3/ul Absolute Nucleated RBC 10^3/ul Nucleated RBC % Sodium 139 (133-145) mmol/L Potassium 4.1 (3.5-5.0) mmol/L Chloride 105 (101-111) mmol/L Carbon Dioxide 28 (22-32) mmol/L Anion Gap 6 (2-11) mmol/L BUN 13 (6-24) mg/dL Creatinine 1.08 (0.67-1.17) mg/dL Est GFR ( Amer) 108.0 (>60) Est GFR (Non-Af Amer) 84.0 (>60) BUN/Creatinine Ratio 12.0 (8-20) Glucose 99 (70-100) mg/dL Calcium 10.0 (8.6-10.3) mg/dL Total Bilirubin 0.30 (0.2-1.0) mg/dL AST 23 (13-39) U/L ALT 36 (7-52) U/L Alkaline Phosphatase 80 (34-104) U/L Total Protein 7.5 (6.4-8.9) g/dL Albumin 4.4 (3.2-5.2) g/dL Globulin 3.1 (2-4) g/dL Albumin/Globulin Ratio 1.4 (1-3) TSH Pending Urine Color Yellow Urine Appearance Clear Urine pH 5.0 (5-9) Ur Specific [place] 1.029 (1.010-1.030) Urine Protein Negative (Negative) Urine Ketones Negative (Negative) Urine Blood Negative (Negative) Urine Nitrate Negative (Negative) Urine Bilirubin Negative (Negative) Urine Urobilinogen Negative (Negative) Ur Leukocyte Esterase 1+ H (Negative) Urine WBC (Auto) 1+(6-10/hpf) H (Absent) Urine RBC (Auto) 1+(3-5/hpf) H (Absent) Ur Squamous Epith Cells Present H (Absent) Urine Bacteria Absent (Absent) Urine Glucose Negative (Negative) Salicylates Pending Urine Opiates Screen None detected (None Detect) Acetaminophen Pending Ur Barbiturates Screen None detected (None Detect) Ur Phencyclidine Scrn None detected (None Detect) Ur Amphetamines Screen None detected (None Detect) U Benzodiazepines Scrn None detected (None Detect) Urine Cocaine Screen None detected (None Detect) U Cannabinoids Screen Presumptive positive H (None Detect) Serum Alcohol Pending 06/23/17 Range/Units 16:35 WBC 9.6 (3.5-10.8) 10^3/ul RBC 5.09 (4.0-5.4) 10^6/ul Hgb 15.9 (14.0-18.0) g/dl Hct 45 (42-52) % MCV 89 (80-94) fL MCH 31 (27-31) pg MCHC 35 (31-36) g/dl RDW 13 (10.5-15) % Plt Count 277 (150-450) 10^3/ul MPV 9 (7.4-10.4) um3 Neut % (Auto) 65.4 (38-83) % Lymph % (Auto) 24.5 L (25-47) % [place] % (Auto) 8.0 (1-9) % Eos % (Auto) 0.9 (0-6) % Baso % (Auto) 1.2 (0-2) % Absolute Neuts (auto) 6.2 (1.5-7.7) 10^3/ul Absolute Lymphs (auto) 2.3 (1.0-4.8) 10^3/ul Absolute Monos (auto) 0.8 (0-0.8) 10^3/ul Absolute Eos (auto) 0.1 (0-0.6) 10^3/ul Absolute Basos (auto) 0.1 (0-0.2) 10^3/ul Absolute Nucleated RBC 0 10^3/ul Nucleated RBC % 0 Sodium (133-145) mmol/L Potassium (3.5-5.0) mmol/L Chloride (101-111) mmol/L Carbon Dioxide (22-32) mmol/L Anion Gap (2-11) mmol/L BUN (6-24) mg/dL Creatinine (0.67-1.17) mg/dL Est GFR ( Amer) (>60) Est GFR (Non-Af Amer) (>60) BUN/Creatinine Ratio (8-20) Glucose (70-100) mg/dL Calcium (8.6-10.3) mg/dL Total Bilirubin (0.2-1.0) mg/dL AST (13-39) U/L ALT (7-52) U/L Alkaline Phosphatase (34-104) U/L Total Protein (6.4-8.9) g/dL Albumin (3.2-5.2) g/dL Globulin (2-4) g/dL Albumin/Globulin Ratio (1-3) TSH Urine Color Urine Appearance Urine pH (5-9) Ur Specific [place] (1.010-1.030) Urine Protein (Negative) Urine Ketones (Negative) Urine Blood (Negative) Urine Nitrate (Negative) Urine Bilirubin (Negative) Urine Urobilinogen (Negative) Ur Leukocyte Esterase (Negative) Urine WBC (Auto) (Absent) Urine RBC (Auto) (Absent) Ur Squamous Epith Cells (Absent) Urine Bacteria (Absent) Urine Glucose (Negative) Salicylates Urine Opiates Screen (None Detect) Acetaminophen Ur Barbiturates Screen (None Detect) Ur Phencyclidine Scrn (None Detect) Ur Amphetamines Screen (None Detect) U Benzodiazepines Scrn (None Detect) Urine Cocaine Screen (None Detect) U Cannabinoids Screen (None Detect) Serum Alcohol Result Diagrams: 06/23/17 16:35 06/23/17 16:35 Lab Statement: Any lab studies that have been ordered have been reviewed, and results considered in the medical decision making process. Course/Dx - Course Assessment/Plan: The patient is a 22 year old male who complains of suicidal ideation and possible thoughts of harming others recently. He explains that he has been going through a custody smith with his and that his took everything from me. In the ED course the patient was given Xanax, Zithromax, Rocephin, and Lidocaine. The patient is diagnosed with suicidality. He was admitted to psych pending mental health evaluation. - Differential Dx/Clinical Impression Provider Diagnosis: Suicidality Discharge - Discharge Plan Condition: Stable Disposition: PSYCHIATRIC FACILITY-[facility] [place] Referrals: Dale Mtz MD [Primary Care Provider] - The documentation as recorded by the Oz gallegos Jennifer accurately reflects the service I personally performed and the decisions made by me, Lalit Fisher MD.
[2017-06-30] MEDS: Gabapentin CAP(*) 300 MG PO SCH (20:44)
[2017-07-01] MEDS: Omeprazole CAP* 20 MG PO SCH (07:42)
[2017-07-01] MEDS: FLUoxetine CAP* 20 MG PO SCH (07:43)
[2017-07-01] MEDS: Naltrexone TAB* 50 MG TAB PO SCH (07:43)
[2017-07-01] MEDS: OXcarbazepine TAB(*) 300 MG PO SCH ×2 (07:43→21:09)
[2017-07-01] MEDS: Vitamin THERAPEUTIC TAB PO SCH (07:43)
[2017-07-01] MEDS: Nicotine PATCH 21 MG/24 HR* PATCH TRANSDERM SCH (07:44)
[2017-07-01] MEDS: Acetaminophen TAB* 325 MG PO PRN ×2 (11:04→21:08)
[2017-07-01] MEDS: Gabapentin CAP(*) 100 MG PO PRN (11:05)
[2017-07-01] MEDS: Nicotine Patch Removal NOTE PATCH OFF SCH (21:07)
[2017-07-01] MEDS: Gabapentin CAP(*) 300 MG PO SCH (21:09)
[2017-07-02] MEDS: Omeprazole CAP* 20 MG PO SCH (10:17)
[2017-07-02] MEDS: Naltrexone TAB* 50 MG TAB PO SCH (10:17)
[2017-07-02] MEDS: OXcarbazepine TAB(*) 300 MG PO SCH ×2 (10:18→21:34)
[2017-07-02] MEDS: FLUoxetine CAP* 20 MG PO SCH (10:18)
[2017-07-02] MEDS: Vitamin THERAPEUTIC TAB PO SCH (10:18)
[2017-07-02] MEDS: Nicotine PATCH 21 MG/24 HR* PATCH TRANSDERM SCH (10:19)
--- NOTE | 2017-07-02 11:53 | PN ---
MHU: Group Therapy Note - Service Type Service Type: [id number] Group Psychotherapy - Cognitive Behavioral Group Therapy ( CBT):Patient was attentive and participatory in CBT programming this morning, and remained in good behavioral control. Patient expressed positive insights regarding relevant treatment interventions and goals.
[2017-07-02] MEDS ORDERED: Gabapentin CAP(*) 300 MG PO SCH (12:25)
--- NOTE | 2017-07-02 12:42 | PN ---
<Trena Chang - Last Filed: 07/02/17 12:33> Subjective - Subjective Service Type: [id number] Hosp care 15 min low complexity Subjective: Emanuel is irritable on approach; upset that he heard from a family member that [facility] is not a good match for him. Through conversation, with some guidance he was able to deal with his anger in a therapeutic fashion. He expresses his desire for inpatient substance use treatment, stating he can not accomplish this outpatient. His mood improved by end of conversation, he was able to laugh appropriately. Objective - Appearance Appearance: Obese Dysmorphic Features: No Hygiene: Normal Grooming: Fairly Well Kept - Behavior Psychomotor Activities: Normal Exhibits Abnormal Movement: No - Attitude and Relatedness Attitude and Relatedness: Irritable Eye Contact: Good - Speech Quality: Unpressured Latencies: Normal Quantity: Appropriate - Mood Patient's Decription of Mood: "Anxious" - Affect Observed Affect: Labile Affect Consistent with: Dysphoria - Thought Process Patient's Thought Process: Coherent, Goal Directed Thought Content: No Passive Wish, No Suicidal Planning, No Homicidal Ideation, No Paranoid Ideation - Sensorium Experiencing Hallucinations: No, Sensorium is Clear Type of Hallucinations: Visual: No, Auditory: No, Command: No - Level of Consciousness Level of Consciousness: Alert Orientation: Yes Intact, Yes Orientated to Time, Yes Orientated to Place, Yes Orientated to Person - Impulse Control Impulse Control: Intact - Insight and Judgement Insight and Judgement: Fair - Group Participation Particating in Group Activities: Yes - Medication Management Medication Management Adherence: Yes Assessment - Assessment Merits Inpatient Hospitalization: For Stabilization, Consolidate Improvements, For Discharge Planning Inpatient DSM-V Dx: F39 Clinical Impression: First psychiatric inpatient admission for this 22 year old male who presented to the ED with complaints of suicidal ideation and engaging in excessive substance use. History of chaotic upbringing and questionable oppositional defiant disorder. Awaiting inpatient bed at [facility] for rehabilitation. Requires continued hospitalization for stabilization, consolidation of improvements. Plan - Plan Treatment Plan: Name: FRANKIE VILLEGAS Birthdate: 1995 [id number] Medications: Current Medications Acetaminophen (Tylenol Tab*) 650 mg PO Q4H PRN PRN Reason: PAIN or TEMP > 101 F Last Admin: 07/01/17 21:08 Dose: 650 mg Al Hydrox/Mg Hydrox/Simethicone (Maalox Plus*) 30 ml PO Q4H PRN PRN Reason: INDIGESTION Device (Nicotine Mouth Piece*) 1 each INH .USE WITH NICOTROL PRN PRN Reason: CRAVING Fluoxetine HCl (Prozac Cap*) 40 mg PO DAILY [facility] Last Admin: 07/02/17 10:18 Dose: 40 mg Gabapentin (Neurontin Cap(*)) 100 mg PO BID PRN PRN Reason: AGITATION/ANXIETY Last Admin: 07/01/17 11:05 Dose: 100 mg Gabapentin (Neurontin Cap(*)) 600 mg PO BEDTIME [facility] Loperamide HCl (Imodium Cap*) 2 mg PO .SEE DIRECTIONS PRN PRN Reason: DIARRHEA Last Admin: 06/29/17 15:52 Dose: 2 mg Multivitamins (Theragran Tab*) 1 tab PO DAILY [facility] Last Admin: 07/02/17 10:18 Dose: 1 tab Naltrexone HCl (Naltrexone Tab*) 50 mg PO DAILY [facility] PRN Reason: Protocol Last Admin: 07/02/17 10:17 Dose: 50 mg Nicotine (Nicotine Inhaler*) 10 mg INH Q2H PRN PRN Reason: CRAVING Nicotine (Nicotine Patch 21 Mg/24 Hr*) 1 patch TRANSDERM DAILY@0800 [facility] Last Admin: 07/02/17 10:19 Dose: Not Given Nicotine Polacrilex (Nicotine Gum*) 2 mg PO Q2H PRN PRN Reason: CRAVING Omeprazole (Prilosec Cap*) 40 mg PO 0730 [facility] Last Admin: 07/02/17 10:17 Dose: 40 mg Oxcarbazepine (Trileptal Tab(*)) 600 mg PO BID [facility] Last Admin: 07/02/17 10:18 Dose: 600 mg Pharmacy Profile Note (Nicotine Patch Removal Note*) 1 note PATCH OFF 2100 [facility] Last Admin: 07/01/17 21:07 Dose: Not Given Phenyleph/Shark Oil/Min Oil/Petrol (Preparation H*) 1 applic FL QID PRN PRN Reason: PAIN <Roro Tracey - Last Filed: 07/03/17 08:28> Plan - Plan Treatment Plan: Name: FRANKIE VILLEGAS Birthdate: 1995 [id number] continue acute intensive psychiatric treatment. increase gabapentin HS dose. discharge to [facility] on morning of 07/03/17 Continued Medication Management: Start Medication Medications: Current Medications Acetaminophen (Tylenol Tab*) 650 mg PO Q4H PRN PRN Reason: PAIN or TEMP > 101 F Last Admin: 07/01/17 21:08 Dose: 650 mg Al Hydrox/Mg Hydrox/Simethicone (Maalox Plus*) 30 ml PO Q4H PRN PRN Reason: INDIGESTION Device (Nicotine Mouth Piece*) 1 each INH .USE WITH NICOTROL PRN PRN Reason: CRAVING Fluoxetine HCl (Prozac Cap*) 40 mg PO DAILY [facility] Last Admin: 07/02/17 10:18 Dose: 40 mg Gabapentin (Neurontin Cap(*)) 100 mg PO BID PRN PRN Reason: AGITATION/ANXIETY Last Admin: 07/02/17 16:48 Dose: 100 mg Gabapentin (Neurontin Cap(*)) 600 mg PO BEDTIME [facility] Last Admin: 07/02/17 21:34 Dose: 600 mg Loperamide HCl (Imodium Cap*) 2 mg PO .SEE DIRECTIONS PRN PRN Reason: DIARRHEA Last Admin: 06/29/17 15:52 Dose: 2 mg Multivitamins (Theragran Tab*) 1 tab PO DAILY [facility] Last Admin: 07/02/17 10:18 Dose: 1 tab Naltrexone HCl (Naltrexone Tab*) 50 mg PO DAILY [facility] PRN Reason: Protocol Last Admin: 07/02/17 10:17 Dose: 50 mg Nicotine (Nicotine Inhaler*) 10 mg INH Q2H PRN PRN Reason: CRAVING Nicotine (Nicotine Patch 21 Mg/24 Hr*) 1 patch TRANSDERM DAILY@0800 [facility] Last Admin: 07/03/17 07:48 Dose: Not Given Nicotine Polacrilex (Nicotine Gum*) 2 mg PO Q2H PRN PRN Reason: CRAVING Omeprazole (Prilosec Cap*) 40 mg PO 0730 [facility] Last Admin: 07/03/17 07:48 Dose: 40 mg Oxcarbazepine (Trileptal Tab(*)) 600 mg PO BID [facility] Last Admin: 07/02/17 21:34 Dose: 600 mg Pharmacy Profile Note (Nicotine Patch Removal Note*) 1 note PATCH OFF 2100 [facility] Last Admin: 07/02/17 21:34 Dose: Not Given Phenyleph/Shark Oil/Min Oil/Petrol (Preparation H*) 1 applic FL QID PRN PRN Reason: PAIN - Discharge Plan Discharge Plan: Drug/Alcohol Rehab
--- NOTE | 2017-07-02 16:17 | PN ---
MHU: Group Therapy Note - Service Type Service Type: [id number] Group Psychotherapy - Medication Education Group: Patient was attentive and participatory in group, and remained in good behavioral control. Patient expressed positive insights regarding relevant treatment interventions. Patient stated understanding of material discussed and had appropriate questions.
[2017-07-02] MEDS: Gabapentin CAP(*) 100 MG PO PRN (16:48)
[2017-07-02] MEDS: Nicotine Patch Removal NOTE PATCH OFF SCH (21:34)
[2017-07-03] MEDS: Nicotine PATCH 21 MG/24 HR* PATCH TRANSDERM SCH (07:48)
[2017-07-03] MEDS: Omeprazole CAP* 20 MG PO SCH (07:48)
[2017-07-03 08:09] VITALS: BP 149/75
[2017-07-03] MEDS: Vitamin THERAPEUTIC TAB PO SCH (08:29)
[2017-07-03] MEDS: OXcarbazepine TAB(*) 300 MG PO SCH (08:29)
[2017-07-03] MEDS: Naltrexone TAB* 50 MG TAB PO SCH (08:29)
[2017-07-03] MEDS: Gabapentin CAP(*) 100 MG PO PRN (08:29)
[2017-07-03] MEDS: FLUoxetine CAP* 20 MG PO SCH (08:29)
--- NOTE | 2017-07-04 09:29 | DS ---
CC: [facility]; [facility] Residential DISCHARGE SUMMARY: DATE OF ADMISSION: 06/24/17 DATE OF DISCHARGE: 07/03/17 SUPERVISING PSYCHIATRIST: Dr. Portillo Bright. DISCHARGE DIAGNOSES: 1. Unspecified mood disorder. 2. Rule out major depressive disorder. 3. Rule out substance abuse disorder. 4. Alcohol use disorder. 5. Cannabis use disorder. 6. Tobacco use disorder. CONDITION AT THE TIME OF DISCHARGE: Improved. The patient reports agreement with discharged to [facility] residential treatment for substance abuse disorders. He denies homicidal ideation toward his girlfriend, current partner. He denies suicidal ideation or violent ideation. He has been pleasant and cooperative on the unit. He has been receptive to therapeutic intervention as he is angry and upset. He has been placed in behavioral control. The patient reports motivating factors to be to feel better and also to able to have a positive relationship with his children. MENTAL STATUS EXAM: At the time of discharge: The patient is an obese white male who appears stated age. He is adequately groomed, wearing his own clothing. He is gathering his belongings and getting dressed in preparation for transportation to [email or web address]. He is cooperative and alert and oriented x3. His eye contact is fair. His speech is terse. He reports his mood as "fine." His affect his congruent, tightens upon approach. Thought process is circumstantial in regards to participating in rehab. As stated above he denies homicidal ideation and denies suicidal ideations. There is no evidence of thought disorder. His insight is fair. His judgement is good in that he is seeking inpatient substance abuse treatment. His fund of knowledge is adequate. His estimated intelligence is average as demonstrated by his academic history. DISCHARGE INSTRUCTIONS: A. Medications: The patient following medications electronically prescribed to [facility] in order for them to be delivered to [email or web address]. 1. Acetaminophen 650 mg p.o. q.4 hours p.r.n. pain or fever. 2. Maalox 30 mg q. 4 hours p.r.n. indigestion. 3. Fluoxetine 40 mg p.o. daily. 4. Gabapentin 100 mg p.o. b.i.d. p.r.n. agitation or anxiety. 5. Gabapentin 600 mg p.o. q.h.s. 6. Naltrexone 50 mg p.o. daily for alcohol use disorder. 7. Nicotine gum 2 mg p.o. q. 2 hours p.r.n. cravings. 8. Nicotine inhalers q.2 hours p.r.n. craving. 9. Nicotine patch 21 mg daily at bedtime. 10. Omeprazole 40 mg p.o. at 07:30. 11. Trileptal 600 mg p.o. b.i.d. 12. Multivitamin 1 p.o. daily. B. Diet: Regular. C. Activities: Ambulation as tolerated. The patient was provided with tobacco cessation prescription. There are no pending labs or diagnostic studies at discharge. D. Followup care: The patient will follow up directly to [facility] for inpatient substance abuse treatment. After completion of substance abuse treatment, it was recommended that he resume outpatient services at [facility]. E. Substance abuse followup: The patient was referred to [facility] for substance abuse treatment and the patient was provided naltrexone for alcohol use disorder and gabapentin for off label alcohol use disorder. HOSPITAL COURSE: Part A: Reason for admission: The patient presented to the emergency department with reports of increased depression, anxiety. He has been recently aggressive towards family members and his ex-partners and significant others. He was also engaging in polysubstance abuse. The patient was evaluated in the emergency department and medically cleared. His CBC, which was grossly unremarkable. His CMP was within normal limits. TSH 2.49. Toxicology negative for salicylates, acetaminophen and alcohol. He was positive for cannabinoids, which was consistent with the patient's report. The patient was agreeable to voluntary psychiatric admission. The patient was at hospital for his prior psychiatric treatment. The patient was admitted to adult behavioral services. He was placed on 15 minutes check for safety. He was encouraged to participate in supportive milieu , individual sessions with staff and psychoeducational groups. The patient participated in psychiatric interview, was cooperative and appeared to be a good historian. We obtained an MMPI for diagnostic verification. Please see report from psychologist, Dr. Isael Candelario for MMPI result. Basically he endorsed crying for help and antisocial personality traits along with elevated depression scale. The patient was agreeable to suggestions of titrations of medicines for depression and anxiety and agitation, substance use disorder. Fluoxetine was titrated to 40 mg. The patient was also started on Trileptal for mood stabilization and off-label use for impulse control and anger management. The patient agreed to use naltrexone for alcohol use disorder. Finally the initiation of medications, he had some mild somatic complaints including GI distress and headache. Denied other side effects. The patient had reported difficulty with sleep. 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 He prefer to stay up late and sleep later. He was receptive to suggestions for sleep hygiene and regulating circadian rhythm. The patient was vague in continued violence and homicidal ideation towards his current partner. He was receptive to therapeutic intervention for anger management and he was able to identify with staff assistance from sources of anger which included fear of inadequacy and most recently, with the partner of the mother of his children. The patient was safe on all checks and was decreased to 30 minutes observation as well as to go on staff test. He was noted to be inactive and have therapeutic relation with select peers, especially those who were also early in recovery from alcohol and substances. While on the mental health unit, the patient agreed to STI testing, these results were negative and given to the patient. We also obtained a hemoglobin A1c, lipid panel. These were slightly elevated and these results were also given to the patient. Re-referrals were sent to substance treatment facilities, most of them were denied due to patient' s lack of previous outpatient services. The patient was ambivalent at times in regards to specific facility. He is receptive to provided suggestion to be treated where he is accepted due to insurance and bed availability. The patient 's referral was accepted at [facility]. He stated agreement with plan to attend and was given a bed date of today. The patient was discharged via a cab directly to [facility]. He was given written discharge instructions including how to contact provider if he has any questions after discharge. NOMI SALAMANCA, ANISHA [id number]/CPS #: [id number]
== END 2017-07-03 09:00 | DRG 753 ==
LOC: ED 15:52 → BSU 06-24 00:12
PROVIDERS: ADMIT Psychiatry & Neurology Psychiatry; ATTEND Psychiatry & Neurology Psychiatry
DX: F39 Unspecified mood [affective] disorder (principal); E66.9 Obesity, unspecified; F10.10 Alcohol abuse, uncomplicated; F12.10 Cannabis abuse, uncomplicated; Y90.0 Blood alcohol level of less than 20 mg/100 ml; F17.220 Nicotine dependence, chewing tobacco, uncomplicated; K21.9 Gastro-esophageal reflux disease without esophagitis; Z79.899 Other long term (current) drug therapy; Z88.1 Allergy status to other antibiotic agents; Z81.3 Family history of other psychoactive substance abuse and dependence; Z68.39 Body mass index [BMI] 39.0-39.9, adult
CPT/HCPCS: 36415; 80053; 80061; 80074; 80307; 80320; 80329; 81003; 81015; 83036; 84443; 85025; 86703; 87086; 87491; 87591; 90853; 99222; 99231; 99232; 99238; 99284; A9270-GY; G0480; J0696

== ENCOUNTER 2017-10-19 08:56 | Emergency (ER) | payer SELFPAY ==
[2017-10-19 09:20] VITALS: BP 144/74
--- NOTE | 2017-10-19 15:49 | UC ---
Joaquin Banda Angela, scribed for Francisco Rivers MD on 10/19/17 at 0910 . Throat Pain/Nasal Darvin HPI - HPI Summary HPI Summary: This pt is a 22 y/o male presenting to [facility] c/o sore throat for the past 3 days. Pt reports his sore throat is worse this morning. He notes he is able to swallow but is painful. Pt additionally notes diaphoresis and body aches. Denies fever, chills, cough, nasal discharge, nausea, vomiting. Denies PMHx of HTN. - History of Current Complaint Stated Complaint: THROAT COMPLAINT Time Seen by Provider: 10/19/17 09:04 Hx Obtained From: Patient Onset/Duration: Gradual Onset, Lasting Days, Still Present Severity: Severe Pain Intensity: 8 Pain Scale Used: 0-10 Numeric Cough: None Associated Signs & Symptoms: Negative: Sinus Discomfort, Nasal Discharge, Fever , Vomiting - Allergies/Home Medications Allergies/Adverse Reactions: Allergies Allergy/AdvReac Type Severity Reaction Status Date / Time amoxicillin [From Augmentin] Allergy Unknown Unknown Verified 10/19/17 09:10 Reaction Details clavulanic acid Allergy Unknown Unknown Verified 10/19/17 09:10 [From Augmentin] Reaction Details PMH/Surg Hx/FS Hx/Imm Hx Other Cardiovascular History: DENIES: HTN Psychological History: Anxiety, Depression, Bipolar Disorder Other History Of: Negative For: HIV, Hepatitis B, Hepatitis C, Anticoagulant Therapy - Surgical History Surgical History: Yes Surgery Procedure, Year, and Place: cholecystectomy - Family History Known Family History: Positive: Cardiac Disease, Hypertension Family History: Mother: alcohol abuse - Social History Alcohol Use: Occasionally Substance Use Type: Marijuana Smoking Status (MU): Never Smoked Tobacco Type: Smokeless Tobacco Have You Smoked in the Last Year: No - Immunization History Most Recent Influenza Vaccination: has not received Most Recent Pneumonia Vaccination: n/a Review of Systems Constitutional: Other - POSITIVE: diaphoresis. NEGATIVE: fever, chills Skin: Negative Eyes: Negative ENT: Sore Throat Respiratory: Negative Cardiovascular: Negative Gastrointestinal: Negative Genitourinary: Negative Motor: Negative Neurovascular: Negative Musculoskeletal: Myalgia Neurological: Negative Psychological: Negative Is Patient Immunocompromised?: No All Other Systems Reviewed And Are Negative: Yes Physical Exam - Summary Physical Exam Summary: VITAL SIGNS: Reviewed. GENERAL: Patient is a well-developed and nourished male who is lying comfortable in the stretcher. Patient is not in any acute respiratory distress. HEAD AND FACE: Normocephalic EYES: PERRLA, EOMI x 2. EARS: Hearing grossly intact. MOUTH: Pharyngeal erythema. NECK: Supple, trachea is midline, no JVD, no carotid bruit. Positive anterior cervical lymphadenopathy. CHEST: Symmetric, no tenderness at palpation LUNGS: Clear to auscultation bilaterally. No wheezing or crackles. CVS: Regular rate and rhythm, S1 and S2 present, no murmurs or gallops appreciated. ABDOMEN: Soft, non-tender. Bowel sounds are normal. No abdominal abnormal pulsations. EXTREMITIES: Full ROM in all major joints, no edema, no cyanosis or clubbing. NEURO: Alert and oriented x 3. No acute neurological deficits. Speech is normal and follows commands. SKIN: Dry and warm Triage Information Reviewed: Yes Vital Signs Reviewed: Yes Throat Pain/Nasal Course/Dx - Course Assessment/Plan: This pt is a 22 y/o male presenting to [facility] c/o sore throat for the past 3 days. Pt reports his sore throat is worse this morning. He notes he is able to swallow but is painful. Pt additionally notes diaphoresis and body aches. Denies fever, chills, cough, nasal discharge, nausea, vomiting. Rapid strep is negative for strep throat. Due to pts pharyngeal erythema and positive cervical lymphadenopathy, he will be given a prescription for Azithromycin. Pt will be discharged to home with follow up from PCP. I discussed the test result with the pt. Pt was instructed to return to the urgent care or go to ER immediately if any of the symptoms return or worsens. Plan of care was discussed with the patient and pt understands and agrees. All questions were answered to patient satisfaction. There were no further complaints or concerns. Pt is hemodynamically stable, alert and oriented x3. The patient was found to have increased blood pressure in UC. The patient will follow up with PCP for better control of BP. - Differential Dx/Diagnosis Provider Diagnoses: Pharyngitis Discharge - Sign-Out/Discharge Documenting (check all that apply): Discharge/Admit/Transfer - Discharge - Discharge Plan Condition: Stable Disposition: HOME Prescriptions: Azithromycin TAB* [Zithromax TAB (Z-SHARON) 250 mg #6 tabs] 250 mg PO DAILY #6 tab Patient Education Materials: Pharyngitis (ED) Referrals: Dale Mtz MD [Primary Care Provider] - Additional Instructions: FOLLOW UP WITH YOUR PRIMARY CARE PROVIDER WITHIN ONE WEEK FOR HIGH BLOOD PRESSURE NOTED TODAY. RETURN TO URGENT CARE OR THE ED FOR ANY WORSENING OR NEW SYMPTOMS. The documentation as recorded by the Joaquin gallegos Angela accurately reflects the service I personally performed and the decisions made by , Francisco Rivers MD.
== END 2017-10-19 09:45 | disposition home or self-care (01) ==
LOC: UCEAST 08:56
DX: J02.9 Acute pharyngitis, unspecified (principal); F41.9 Anxiety disorder, unspecified; F31.9 Bipolar disorder, unspecified; Z88.1 Allergy status to other antibiotic agents; Z88.0 Allergy status to penicillin; Z82.49 Family history of ischemic heart disease and other diseases of the circulatory system; Z81.1 Family history of alcohol abuse and dependence
CPT/HCPCS: 87651; 99212; G0463

== ENCOUNTER 2019-04-08 13:54 | Emergency (ER) | payer OTHER ==
[2019-04-08] MEDS ORDERED: Al Hydrox/Mg Hydrox/Simet LIQ* 30 ML UDC PO ONE (14:07)
[2019-04-08] MEDS ORDERED: NS 0.9% 1000 ML** 1,000 ML IV ONE (14:07)
[2019-04-08] MEDS ORDERED: Ondansetron INJ* 2 MG/ML VIAL IV ONE ×2 (14:07→14:33)
[2019-04-08] MEDS ORDERED: Lidocaine 2% VISCOUS* 15 ML UDC PO ONE (14:07)
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
[2019-04-08] MEDS ORDERED: LORazepam INJ* 2 MG/ML 1 ML VIAL IV PUSH ONE (14:33)
[2019-04-08] MEDS ORDERED: Metoclopramide IV* 5 MG/ML 2 ML VIAL IV SLOW PU ONE (14:33)
[2019-04-08] MEDS ORDERED: Lorazepam PYXIS KEY PRN (14:33)
[2019-04-08] MEDS ORDERED: Lorazepam PYXIS KEY ONE (14:37)
[2019-04-08] MEDS ORDERED: Alteplase* 100 MG VIAL ONE (15:27)
[2019-04-08] MEDS ORDERED: KCL 10 MEQ/50 ML IVPREMIX* 0 MEQ/0 ML BAG ONE (15:39)
[2019-04-08] MEDS ORDERED: KCL 20 MEQ/100 ML IVPREMIX* 20 MEQ/100 ML BAG IV SCH (16:00)
[2019-04-08 16:12] LABS: Hematocrit 44 % (42-52); Hemoglobin 14.5 g/dL (14.0-18.0); Mean Corpuscular HGB Conc 33 g/dL (31-36); Mean Corpuscular Hemoglobin 32 pg (27-31); Mean Corpuscular Volume 97 fL (80-94); Mean Platelet Volume 10.3 fL (7.4-10.4); Platelet Count 107 10^3/uL (150-450); Red Blood Count 4.57 10^6 /uL (4.18-5.48); Red Cell Distribution Width 13 % (10-15); White Blood Count 17.9 10^3/uL (3.5-10.8)
[2019-04-08 16:23] LABS: Urine Appearance Turbid; Urine Bilirubin Negative (Negative); Urine Blood 1+ (Negative); Urine Color Amber; Urine Glucose Negative (Negative); Urine Ketones 2+ (Negative); Urine Nitrite Negative (Negative); Urine Protein 2+(100 mg/dL) (Negative); Urine Specific Gravity 1.027 (1.010-1.030); Urine Urobilinogen Negative (Negative)
[2019-04-08 16:28] LABS: Urine Bacteria 3+ (Absent); Urine Red Blood Cell 3+(>10/hpf) (Absent); Urine Squamous Epithelial Cell Present (Absent); Urine Transitional Epithelial Present (Absent); Urine White Blood Cell 3+(>20/hpf) (Absent)
[2019-04-08 16:44] LABS: ABS Basophils 0.1 10^3/ul (0-0.2); ABS Eosinophils 0.2 10^3/ul (0-0.6); ABS Lymphocytes 3.4 10^3/ul (1.0-4.8); ABS Monocytes 0.6 10^3/ul (0-0.8); ABS Neutrophils 13.5 10^3/ul (1.5-7.7); Eosinophil % 1.1 %; Lymphocyte % 19.2 %; Nucleated Red Blood Cells % 0.2
[2019-04-08 16:49] LABS: ALT 217 U/L (7-52); Albumin 3.1 g/dL (3.2-5.2); Albumin/Globulin Ratio 1.5 (1-3); Alkaline Phosphatase 62 U/L (34-104); Blood Urea Nitrogen 19 mg/dL (6-24); C Reactive Protein 6.34 mg/L (<8.01); CO2 Carbon Dioxide 15 mmol/L (22-32); Calcium 8.4 mg/dL (8.6-10.3); Chloride 104 mmol/L (101-111); EGFR African American 70.6 (>60); EGFR Non-African American 58.4 (>60); Globulin 2.1 g/dL (2-4); Glucose 324 mg/dL (70-100); Total Protein 5.2 g/dL (6.4-8.9)
[2019-04-08 17:00] LABS: Anion Gap 28 mmol/L (2-11); Sodium 147 mmol/L (135-145)
[2019-04-08 18:12] LABS: Urine Benzodiazepine Screen None Detected (None Detect); Urine Opiates Screen None Detected (None Detect)
[2019-04-13 07:13] VITALS: BP 0/0
== END 2019-04-08 16:15 | disposition expired ==
LOC: ED 13:54
DX: I46.9 Cardiac arrest, cause unspecified (principal); K52.9 Noninfective gastroenteritis and colitis, unspecified; K21.9 Gastro-esophageal reflux disease without esophagitis; F41.9 Anxiety disorder, unspecified; F31.9 Bipolar disorder, unspecified; F17.200 Nicotine dependence, unspecified, uncomplicated; Z90.49 Acquired absence of other specified parts of digestive tract; Z79.899 Other long term (current) drug therapy; Z88.0 Allergy status to penicillin; Z88.1 Allergy status to other antibiotic agents
CPT/HCPCS: 31500; 36415; 71045; 80053; 80307; 81003; 81015; 83605; 83690; 85025; 86140; 87040; 87086; 96374; 96375; 96376; 99285; A9270-GY; J2060; J2405; J2765; J2997; J3480

== ENCOUNTER → 2019-04-09 12:00 | Day surgery (SDC) | payer OTHER | END | disposition home or self-care (01) | LOC: OR 12:00 | PROVIDERS: ATTEND Emergency Medicine Emergency Medical Services | DX: Z52.89 Donor of other specified organs or tissues (principal) ==